=== PATIENT | female | born 1945 | race Caucasian/White ===

== ENCOUNTER 2021-04-03 10:17 | Observation (INO) | payer OTHER ==
[2021-04-03 11:28] LABS: VENOUS BASE EXCESS 1.6 mmol/L (-2-2); VENOUS O2 SATURATION 29.6 % (70-80); VENOUS PCO2 56.3 mmHg (38-52); VENOUS PH 7.328 (7.310-7.410)
[2021-04-03 11:30] LABS: BASO % 0.7 % (0-2.0); HEMATOCRIT 40.8 % (32.4-45.2); HEMOGLOBIN 14.1 GM/dL (10.7-15.3); LYMPH % 9.1 % (8-40); MCH 30.3 pg (25.7-33.7); MCHC 34.5 g/dl (32.0-36.0); MEAN CELL VOLUME 87.8 fl (80-96); MEAN PLT VOLUME 9.3 fl (7.5-11.1); MONO % 5.2 % (3.8-10.2); PLATELET COUNT 228 K/MM3 (134-434); RBC 4.64 M/mm3 (3.60-5.2); RDW 14.3 % (11.6-15.6); WHITE BLOOD COUNT 7.4 K/mm3 (4.0-10.0)
[2021-04-03 11:37] LABS: INR 1.1 (0.83-1.09); PROTHROMBIN TIME (PATIENT) 13.3 SEC (9.7-13.0)
[2021-04-03 11:56] LABS: CHLORIDE 101 mmol/L (98-107); SODIUM 137 mmol/L (136-145)
[2021-04-03 11:59] LABS: CALCIUM 9.5 mg/dL (8.5-10.1)
[2021-04-03 12:00] LABS: ALBUMIN 4.4 g/dl (3.4-5.0); ANION GAP 7 MMOL/L (8-16); BLOOD UREA NITROGEN 8.5 mg/dL (7-18); CO2 30 mmol/L (21-32); LIPASE 212 U/L (73-393); MAGNESIUM 2.3 mg/dL (1.8-2.4)
[2021-04-03 12:02] LABS: SGPT/ALT 22 U/L (13-61)
[2021-04-03 12:04] LABS: BILIRUBIN,TOTAL 0.6 mg/dL (0.2-1); CREATININE 0.9 mg/dL (0.55-1.3); SGOT/AST 16 U/L (15-37); TOT PROT 7.2 g/dl (6.4-8.2)
[2021-04-03 12:05] LABS: ALK PHOS 112 U/L (45-117)
[2021-04-03 12:15] LABS: GLUCOSE,RANDOM 115 mg/dL (74-106)
[2021-04-03 12:45] LABS: PH,URINE 6.5 (5.0-8.0); URINE APPEARANCE CLEAR; URINE BILIRUBIN NEGATIVE (NEGATIVE); URINE COLOR YELLOW; URINE GLUCOSE (UA) NEGATIVE (NEGATIVE); URINE KETONE NEGATIVE (NEGATIVE); URINE LEUK ESTERASE NEGATIVE (NEGATIVE); URINE NITRITE NEGATIVE (NEGATIVE); URINE PROTEIN NEGATIVE (NEGATIVE); URINE UROBILINOGEN 0.2 mg/dL (0.2-1.0)
[2021-04-03] MEDS ORDERED: HYDROCHLOROTHIAZIDE 12.5 MG CAPSULE (FP) PO SCH (15:00)
[2021-04-03] MEDS ORDERED: LABETALOL HCL 5 MG/1 ML (100MG/20 ML VIAL) IVPUSH ONE (17:43)
[2021-04-03] MEDS ORDERED: amLODIPine BESYLATE 5 MG TABLET (FP) PO ONE (17:43)
[2021-04-03] MEDS ORDERED: CARBIDOPA/LEVODOPA 25/100 TABLET (FP) ONE (22:04)
[2021-04-03] MEDS: CARBIDOPA/LEVODOPA 25/100 TABLET (FP) PO SCH (22:09)
[2021-04-04 03:06] VITALS: BMI 17.7
[2021-04-04] MEDS: LEVOTHYROXINE NA 25 MCG TABLET (FP) PO SCH (06:00)
[2021-04-04] MEDS: CARBIDOPA/LEVODOPA 25/100 TABLET (FP) PO SCH ×3 (06:00→22:38)
[2021-04-04 07:14] LABS: HEMATOCRIT 34.2 % (32.4-45.2); MCH 30.6 pg (25.7-33.7); MCHC 35.1 g/dl (32.0-36.0); MEAN CELL VOLUME 87.3 fl (80-96); MEAN PLT VOLUME 9.6 fl (7.5-11.1); PLATELET COUNT 179 K/MM3 (134-434); RBC 3.91 M/mm3 (3.60-5.2); WHITE BLOOD COUNT 5.6 K/mm3 (4.0-10.0)
[2021-04-04 07:37] LABS: ALBUMIN 3.6 g/dl (3.4-5.0); CALCIUM 8.5 mg/dL (8.5-10.1); MAGNESIUM 2.1 mg/dL (1.8-2.4)
[2021-04-04 07:40] LABS: CREATININE 0.7 mg/dL (0.55-1.3); PHOSPHOROUS 2.9 mg/dL (2.5-4.9)
[2021-04-04 07:42] LABS: BILIRUBIN,TOTAL 0.6 mg/dL (0.2-1); TOT PROT 6.1 g/dl (6.4-8.2)
[2021-04-04] MEDS: ENOXAPARIN NA (PORCINE) 40 MG/0.4 ML DISP.SYRIN SQ SCH (10:06)
[2021-04-04] MEDS: amLODIPine BESYLATE 5 MG TABLET (FP) PO SCH (10:06)
[2021-04-05] MEDS: CARBIDOPA/LEVODOPA 25/100 TABLET (FP) PO SCH ×3 (05:59→22:07)
[2021-04-05] MEDS: LEVOTHYROXINE NA 25 MCG TABLET (FP) PO SCH (05:59)
[2021-04-05] MEDS: ENOXAPARIN NA (PORCINE) 40 MG/0.4 ML DISP.SYRIN SQ SCH (09:59)
[2021-04-05] MEDS: amLODIPine BESYLATE 5 MG TABLET (FP) PO SCH (09:59)
[2021-04-06] MEDS: CARBIDOPA/LEVODOPA 25/100 TABLET (FP) PO SCH ×3 (05:44→21:08)
[2021-04-06] MEDS: LEVOTHYROXINE NA 25 MCG TABLET (FP) PO SCH (06:20)
[2021-04-06 06:59] LABS: MCH 29.9 pg (25.7-33.7); MCHC 33.4 g/dl (32.0-36.0); MEAN CELL VOLUME 89.6 fl (80-96); MEAN PLT VOLUME 10.3 fl (7.5-11.1); PLATELET COUNT 189 K/MM3 (134-434); RBC 4.69 M/mm3 (3.60-5.2); RDW 14.4 % (11.6-15.6); WHITE BLOOD COUNT 6.7 K/mm3 (4.0-10.0)
[2021-04-06 08:12] LABS: BLOOD UREA NITROGEN 17.7 mg/dL (7-18); MAGNESIUM 2.2 mg/dL (1.8-2.4)
[2021-04-06 08:15] LABS: CREATININE 0.8 mg/dL (0.55-1.3); PHOSPHOROUS 3.2 mg/dL (2.5-4.9)
[2021-04-06] MEDS: amLODIPine BESYLATE 5 MG TABLET (FP) PO SCH (09:35)
[2021-04-06] MEDS: ENOXAPARIN NA (PORCINE) 40 MG/0.4 ML DISP.SYRIN SQ SCH (09:35)
[2021-04-07] MEDS: CARBIDOPA/LEVODOPA 25/100 TABLET (FP) PO SCH ×3 (06:38→21:08)
[2021-04-07] MEDS: LEVOTHYROXINE NA 25 MCG TABLET (FP) PO SCH (06:38)
[2021-04-07] MEDS: amLODIPine BESYLATE 5 MG TABLET (FP) PO SCH (10:12)
[2021-04-07] MEDS: ENOXAPARIN NA (PORCINE) 40 MG/0.4 ML DISP.SYRIN SQ SCH (10:12)
[2021-04-08] MEDS: CARBIDOPA/LEVODOPA 25/100 TABLET (FP) PO SCH ×3 (06:00→22:13)
[2021-04-08] MEDS: LEVOTHYROXINE NA 25 MCG TABLET (FP) PO SCH (06:00)
[2021-04-08 06:31] LABS: HEMATOCRIT 38.3 % (32.4-45.2); HEMOGLOBIN 12.7 GM/dL (10.7-15.3); MCH 29.5 pg (25.7-33.7); MCHC 33.2 g/dl (32.0-36.0); MEAN PLT VOLUME 10.1 fl (7.5-11.1); PLATELET COUNT 192 10^3/uL (134-434); RDW 14.4 % (11.6-15.6); WHITE BLOOD COUNT 5.9 K/mm3 (4.0-10.0)
[2021-04-08 06:49] LABS: BLOOD UREA NITROGEN 23.5 mg/dL (7-18); CALCIUM 8.6 mg/dL (8.5-10.1)
[2021-04-08 06:52] LABS: CREATININE 0.8 mg/dL (0.55-1.3)
[2021-04-08] MEDS: amLODIPine BESYLATE 5 MG TABLET (FP) PO SCH (09:44)
[2021-04-08] MEDS: ENOXAPARIN NA (PORCINE) 40 MG/0.4 ML DISP.SYRIN SQ SCH (09:44)
[2021-04-09] MEDS: CARBIDOPA/LEVODOPA 25/100 TABLET (FP) PO SCH ×3 (06:11→22:18)
[2021-04-09] MEDS: LEVOTHYROXINE NA 25 MCG TABLET (FP) PO SCH (06:11)
[2021-04-09] MEDS: amLODIPine BESYLATE 5 MG TABLET (FP) PO SCH (11:00)
[2021-04-09] MEDS: ENOXAPARIN NA (PORCINE) 40 MG/0.4 ML DISP.SYRIN SQ SCH (11:00)
[2021-04-10] MEDS: LEVOTHYROXINE NA 25 MCG TABLET (FP) PO SCH (07:13)
[2021-04-10] MEDS: CARBIDOPA/LEVODOPA 25/100 TABLET (FP) PO SCH ×3 (07:13→22:26)
[2021-04-10] MEDS: ENOXAPARIN NA (PORCINE) 40 MG/0.4 ML DISP.SYRIN SQ SCH (09:46)
[2021-04-10] MEDS: amLODIPine BESYLATE 5 MG TABLET (FP) PO SCH (09:47)
[2021-04-11] MEDS: CARBIDOPA/LEVODOPA 25/100 TABLET (FP) PO SCH (06:08)
[2021-04-11] MEDS: LEVOTHYROXINE NA 25 MCG TABLET (FP) PO SCH (06:12)
[2021-04-11] MEDS: amLODIPine BESYLATE 5 MG TABLET (FP) PO SCH (09:32)
[2021-04-11 10:18] VITALS: BP 149/75; PULSE 88; TEMP 98.4
== END 2021-04-11 12:05 | disposition home health service (06) ==
LOC: JER 10:17 → JERBED 14:51 → INTOOBSV 14:51 → J2W 04-04 00:04
PROVIDERS: ATTEND Internal Medicine
PROC: 3E033GC Introduction of Other Therapeutic Substance into Peripheral Vein, Percutaneous Approach (ICD-10-PCS; principal; 2021-04-03)
PROC: 3E013GC Introduction of Other Therapeutic Substance into Subcutaneous Tissue, Percutaneous Approach (ICD-10-PCS; 2021-04-03)
DX: R55 Syncope and collapse (principal); I16.1 Hypertensive emergency; R41.3 Other amnesia; E78.5 Hyperlipidemia, unspecified; E03.9 Hypothyroidism, unspecified; G31.84 Mild cognitive impairment of uncertain or unknown etiology; G20 Parkinson's disease; M24.412 Recurrent dislocation, left shoulder
CPT/HCPCS: 36415; 70450-TC; 70551-TC; 71045-TC-FY; 73030-TC-LT-FY; 80048; 80053; 80307; 81003; 82140; 82550; 82607; 82803; 82962; 83036; 83605; 83690; 83735; 84100; 84146; 84443; 84484; 85025; 85027; 85610; 86780; 93005; 93010; 93306-TC; 93880-TC; 95816; 96372; 96374; 97116-GP; 97161-GP; 99285-25; C9803; G0378; U0003; U0005